=== PATIENT | male | born 1990 | race African-American/Black ===

== ENCOUNTER 2017-08-16 17:47 | Emergency (ER) | payer MEDICAID ==
[~2017-08-16] VITALS: Ht 162.6 cm; Wt 72.6 kg
[2017-08-16] MEDS ORDERED: Norco 5mg/325mg tab ORAL ONE (18:00)
[2017-08-16] MEDS ORDERED: NORCO 5-325 TA1 EAC1 ORAL (19:05)
[2017-08-16 19:10] VITALS: BP 117/73
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
--- NOTE | 2017-08-17 10:35 | Diagnostic Imaging Report ---
Indication: Trauma Technique: Continuous helical transaxial imaging of the maxillofacial structures obtained without intravenous contrast administration. Coronal 2-D reformats were also obtained. Study obtained in a Siemens sensation [address] Total Dose length Product (DLP): [address] Dose Index Volume (CTDIvol): 0.15, 70.38, 28.19 mGy Comparison: None Findings: There is a moderately depressed fracture of the medial orbital wall the right side. There is mild depression of the floor the inferior wall on the right as well of about 3 mm. Some extraconal air noted within the orbit adjacent to the fracture. Is there is no obvious extraocular muscle entrapment but please correlate clinically. There is mucosal thickening as well within the ethmoid sinus. There is a small air blood level in the right axillary sinus. Impression: Acute mildly displaced fracture of the floor of the right orbit. Acute fracture of the medial right orbital wall. Pre-existing sinusitis probably present as well. Dr. Jack has communicated the preliminary results to the Emergency Department. There are no significant discrepancies. The CT scanner at [facility] is accredited by the [employer] and the scans are performed using dose optimization techniques as appropriate to a performed exam including Automatic Exposure control.
--- NOTE | 2017-08-17 10:52 | Diagnostic Imaging Report ---
Indication: Headache Technique: Contiguous 5 mm thick transaxial imaging of the head obtained in a Siemens Sensation [address] scanner. Soft tissue and bone windows generated. Total Dose length Product (DLP): [address] Dose Index Volume (CTDIvol): 70.38, 0.15 28.19 mGy Comparison: none Findings: The size and configuration of the cortical sulci, basal cisterns, and ventricles are within normal limits for age. There is no mass effect, midline shift, or edema identified. There is no evidence of acute hemorrhage or abnormal intra-axial or extra-axial fluid collections. The bones and soft tissues are unremarkable. Impression: No mass effect, edema or acute bleed. The right orbital injury is discussed on the CT facial bones report The CT scanner at [facility] is accredited by the [employer] and the scans are performed using dose optimization techniques as appropriate to a performed exam including Automatic Exposure control.
== END 2017-08-16 19:24 | disposition home or self-care (01) ==
LOC: EMR 18:05
DX: S02.31XA Fracture of orbital floor, right side, initial encounter for closed fracture (principal); S02.81XA Fracture of other specified skull and facial bones, right side, initial encounter for closed fracture; Y04.2XXA Assault by strike against or bumped into by another person, initial encounter; Y92.89 Other specified places as the place of occurrence of the external cause
CPT/HCPCS: 70450; 70486; 99284